=== PATIENT | male | born 1995 | race Caucasian/White ===

== ENCOUNTER 2024-05-07 09:37 | Emergency (ER) | payer SELFPAY ==
--- NOTE | ~2024-05-07 | XR_ITS ---
EXAMINATION: XR KNEE, RIGHT CLINICAL INFORMATION: pain no trauma COMPARISON: None available. TECHNIQUE: Four views of the right knee. FINDINGS: No fracture, dislocation, or suspicious bone lesion. Normal bone mineralization. Normal alignment. Joint spaces are preserved. No significant arthropathy. No significant joint effusion. Soft tissues appear normal. XR/XR knee RT 3V IMPRESSION: Normal right knee. Electronically signed by: Isacc Mcnulyt MD 05/07/2024 10:27 AM EDT
[2024-05-07 09:47] VITALS: BP 132/78; PULSE 77; RESP 19; TEMP 36.3; O2SAT 98; BMI 31.6
--- NOTE | 2024-05-07 10:31 | ED.LOWEXIN ---
HPI - Extremity Injury (Lower) General Chief Complaint: Extremity Injury, Lower Stated Complaint: Knee pain Time Seen by Provider: 05/07/24 10:31 Source: patient Mode of arrival: ambulatory Limitations: no limitations History of Present Illness ED Provider: STEPH WALLACE PA-C HPI Narrative: 29 year old male with pmhx significant for presents to the ED today with acute on chronic right knee pain x1 week. Pain is localized to the entire anterior aspect of the knee. no pain with flexion/ extension. Able to ambulate without difficulty. 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 Reports intermittent right knee pain x2 years. Has never been medically evaluated for this in the past. He has not trialed any OTC pain meds for this. Denies any injury/ trauma. Denies IVDU. No hx gout. No known tick or insect bites. Denies numbness, tingling, weakness of the LEs. Denies fever, chills. Denies recent injury or trauma to the LE. Related Data Previous Rx's ?Medication ?Instructions ?Recorded naproxen 500 mg tablet 500 mg PO Q12H PRN pain (scale 05/07/24 score 1-3) #20 tabs prednisone 20 mg tablet 40 mg (2 x 20 mg) PO DAILY 3 days 05/07/24 #6 tabs Allergies Allergy/AdvReac Type Severity Reaction Status Date / Time No Known Allergies Allergy Verified 05/07/24 09:51 Review of Systems Review of Systems: Constitutional: No fever, chills, fatigue, night sweats, weight changes ENT/Mouth: No ear pain, hearing loss, nasal congestion, sinus pain, rhinorrhea, sore throat Eyes: No eye pain, swelling, redness, vision changes, discharge Cardio: No chest pain, palpitations, SHAFFER, orthopnea, peripheral edema Pulm: No SOB, cough, sputum, wheezing, dyspnea, hemoptysis GI: No nausea, vomiting, hematemesis, abdominal pain, diarrhea, constipation, hematochezia, melena : No irregular bleeding, dysuria, frequency, urgency, hesitancy, hematuria, flank pain, urinary flow changes, urinary incontinence or retention MSK: No back pain, neck pain, joint pain, myalgias, +right knee pain Skin: No lesions, rashes Neuro: No weakness, numbness, paresthesias, LOC, dizziness, headache Psych: No anxiety/panic, depression, SI/HI, AH/VH All other systems reviewed and are negative. FOR[facility]LY [facility] Past Medical History Attestation statement: The following information was validated with the patient. Source: old records reviewed and nursing notes reviewed Social History Social History Advance Directives: No Advance Directives Information Provided: No Do you have a plan to hurt others: No Plan Physical Exam Vital Signs: Vital Signs: Last Vital Signs Temp 97.4 F 05/07/24 09:47 Pulse 77 05/07/24 09:47 Resp 19 05/07/24 09:47 BP 132/78 05/07/24 09:47 Pulse Ox 98 05/07/24 09:47 O2 Del Method Room Air 05/07/24 09:47 BMI result Body Mass Index 31.6 vital signs stable General: Well appearing, in no acute distress. Skin: Warm, dry, intact. No rashes or lesions. Head: Normocephalic, atraumatic. EENT: Hearing is intact b/l. Conjunctiva clear. PERRLA. EOM intact. Moist mucous membranes.? Neck: Supple without LAD Cardiac: Chest wall symmetric. RRR Lungs: Normal respiratory effort without accessory muscle use Back: No midline spinous or paraspinal tenderness. No step off deformity. Ext: +no overlying skin changes or deformity to right knee. no swelling. no rashes. FROM intact to right knee without pain on flexion or extension. nontender to palpation of anterior or posterior aspects. no hip tenderness/deformity. no calf tenderness. 2+ popliteal/ dp/pt pulse intact. ambulating with steady gait. Neuro: AOx3. Normal speech. Course Course Course Narrative: xr knee without fracture or dislocation. no effusion. no concern for acute process at this time. naproxen/ prednisone sent to pharmacy. advised to f/u with pcp/ ortho. referrals provided. Patient has remained stable throughout ED visit today. Discussed worrisome signs and symptoms and when to return to the ED. All questions answered at this time. Patient is agreeable with disposition and stable for discharge. Medical Decision Making Medical Decision Making MDM Narrative: 29 year old male with pmhx significant for presents to the ED today with acute on chronic right knee pain x1 week. vital signs are stable. he is nontoxic appearing and in NAD. on exam of RLE, there are no overlying skin changes or deformity to right knee. no swelling. no rashes. FROM intact to right knee without pain on flexion or extension. nontender to palpation of anterior or posterior aspects. no hip tenderness/deformity. no calf tenderness. 2+ popliteal/ dp/pt pulse intact. ambulating with steady gait. Differential diagnosis includes contusion, msk sprain/ strain, arthritis, bursitis, tendonitis. lower suspicion for fracture, subluxation. presentation not consistent with gout, pseudo gout, lyme arthritis, septic joint, dvt, bird's cyst, nv compromise, threat to limb, compartment syndrome. Plan for imaging, pain control, and disposition. Differential Diagnosis Differential Diagnoses: The differential diagnosis associated with the presentation includes as above. Admission/Observation not indicated. Independent Interpretation I performed an independent interpretation of an: Plain X-Ray Interpretation: xr without fracture or dislocation Radiology Impression Discussion of test interpretation with radiology: I have reviewed the radiologist's reading. Radiologist Impression: Procedure(s): XR knee RT 3V Accession Number(s): [id number] cc: Generic ED Physician; Physician,Unknown ~ EXAMINATION: XR KNEE, RIGHT CLINICAL INFORMATION: pain no trauma COMPARISON: None available. TECHNIQUE: Four views of the right knee. FINDINGS: No fracture, dislocation, or suspicious bone lesion. Normal bone mineralization. Normal alignment. Joint spaces are preserved. No significant arthropathy. No significant joint effusion. Soft tissues appear normal. XR/XR knee RT 3V IMPRESSION: Normal right knee. Electronically signed by: Isacc Mcnulty MD 05/07/2024 10:27 AM EDT Prescription Management I considered prescription management with: Pain Medication and Other Social Determinants Patient?s care significantly limited by Social Determinants of Health including: Other Social Determinant of Health Critical Care Time Critical Care Time Critical Care Time: No Discharge Plan Discharge Clinical Impression: Knee pain, right Patient Disposition: Home, Self-Care Instructions: Naproxen (By mouth), Prednisone (By mouth), R.I.C.E. Treatment (ED) Additional Instructions: You were evaluated in the Emergency Department today for your right knee pain. Your evaluation did not show signs of medical conditions requiring emergent intervention at this time. Use ice several times per day for 20 minutes at a time for the next 48 hours and then change to heat. Naproxen is an anti-inflammatory pain medication that has been sent to your pharmacy. take this as needed for pain. do not take this with other NSAIDs such as Motrin as this can cause increased risk of GI bleeding. A short course of prednisone has been sent to your pharmacy. take this as prescribed. Rest, ice, compress, elevate the right knee. Please schedule an appointment for follow-up with your primary care provider this week for further evaluation of your symptoms. You have also been provided with a referral to an orthopedist. call them to make an appointment. Return to the Emergency Department if you experience worsening back pain, difficulty walking, fevers, numbness, tingling, incontinence, or any other concerning symptoms. In the case of an emergency call 911. Prescriptions: New naproxen 500 mg tablet 500 mg PO Q12H PRN (Reason: pain (scale score 1-3)) Qty: 20 0RF prednisone 20 mg tablet 40 mg PO DAILY 3 Days Qty: 6 0RF Stand Alone Forms: Work/School Release Print Language: Singaporean
[2024-05-07] MEDS: Ketorolac Tromethamine 30 MG/ML VIAL IM (10:57)
[2024-05-07 11:03] VITALS: BP 132/78; PULSE 77; RESP 19; TEMP 36.3; O2SAT 98
== END 2024-05-07 11:05 | disposition home or self-care (01) ==
PROVIDERS: Emergency Provider Emergency Medicine
DX: M25.561 Pain in right knee (principal)
CPT/HCPCS: 73562; 96372; 99283; 99284; J1885

== ENCOUNTER → 2024-05-07 10:02 | Outpatient (BNV) | payer SELFPAY | PROVIDERS: Emergency Provider Emergency Medicine; Visit Provider Radiology Diagnostic Radiology | DX: M25.561 Pain in right knee (principal) | CPT/HCPCS: 73562 ==